=== PATIENT | female | born 1945 | race Asian ===

== ENCOUNTER 2016-11-06 20:07 | Emergency (ER) | payer OTHER ==
[~2016-11-06] VITALS: Ht 170.2 cm; Wt 57.5 kg
[~2016-11-06 20:07] MED LIST: ALLERGRA PO; ANTIVERT PO; BENADRYL PO; ESTRIDIOL PO; FLUOCINOLONE; SINGULAIR PO; TOF25; ZANTAC PO; ZYRTEC PO
[2016-11-06 20:18] VITALS: Ht 170.2 cm; Wt 57.5 kg
[2016-11-06] MEDS ORDERED: ONDANSETRON 4 MG INJ IV STA (20:30)
[2016-11-06] MEDS ORDERED: SOD CHLORIDE 0.9% 1,000 ML IV STA (20:30)
[2016-11-06] MEDS ORDERED: KETOROLAC 30 MG INJ IV STA (20:30)
[2016-11-06 20:54] LABS: BASOPHILS % 0.1 % (0.0-2.0); EOSINOPHILS # 0.1 10^3/ul (0.0-0.5); EOSINOPHILS % 0.9 % (0.0-7.0); HEMATOCRIT 40.7 % (37.0-47.0); HEMOGLOBIN 13.6 g/dl (12.0-16.0); LYMPHOCYTES # 1.1 10^3/ul (0.8-2.9); LYMPHOCYTES % 12.8 % (15.0-51.0); MEAN CORPUSCULAR HEMOGLOBIN 28.9 pg (29.0-33.0); MEAN CORPUSCULAR HGB CONC 33.4 g/dl (32.0-37.0); MEAN CORPUSCULAR VOLUME 86.6 fl (82.0-101.0); MEAN PLATELET VOLUME 10.2 fl (7.4-10.4); MONOCYTE # 0.4 10^3/ul (0.3-0.9); MONOCYTES % 4.5 % (0.0-11.0); NEUTROPHIL # 6.9 10^3/ul (1.6-7.5); NEUTROPHILS % 81.6 % (39.0-77.0); PLATELET COUNT 225 10^3/UL (140-415); RED CELL DISTRIBUTION WIDTH 12.6 % (11.5-14.5); WHITE BLOOD COUNT 8.5 10^3/ul (4.8-10.8)
[2016-11-06 20:55] LABS: ADD SCAN DIFF NO
--- NOTE | 2016-11-06 21:12 | RADRPT ---
PROCEDURE: Right upper quadrant abdominal ultrasound. CLINICAL INDICATION: Abdominal pain TECHNIQUE: Alford scale and color doppler ultrasound images of the right upper quadrant. COMPARISON: None FINDINGS: Pancreas: Visualized portions appear of normal echogenicity, no focal lesions. Liver: Morphology: Normal in size and contour. Echogenicity: Normal. Focal lesions: None. Main portal vein: Patent with hepatopetal flow. Biliary System: Normal appearing gallbladder wall. No gallstones seen. No intrahepatic biliary dilatation. Common bile duct measures 1.5 mm in maximal dimension. Kidneys: Right 9.0 cm in length. Right renal cortical thickness is preserved. Normal echogenicity. No hydronephrosis. No renal calculi. No focal lesions. No free fluid identified. IMPRESSION: Normal gallbladder without gallstones. RPTAT: AADD .Jori Esteban MD, Date Time Electronically viewed and signed by .Jori Esteban MD, on 11/06/2016 21:11 .B/
[2016-11-06 21:14] LABS: ALANINE AMINOTRANSFERASE 29 IU/L (13-69); ALBUMIN 4.9 g/dl (3.3-4.9); ALBUMIN/GLOBULIN RATIO 1.81; ALKALINE PHOSPHATASE 71 IU/L (42-121); ANION GAP 12 (8-16); ASPARTATE AMINO TRANSFERASE 26 IU/L (15-46); BILIRUBIN,INDIRECT 0.2 mg/dl (0-1.1); BILIRUBIN,TOTAL 0.2 mg/dl (0.2-1.3); BLOOD UREA NITROGEN 25 mg/dl (7-20); CALCIUM 9.7 mg/dl (8.4-10.2); CARBON DIOXIDE 28 mmol/L (21-31); CHLORIDE 100 mmol/L (97-110); GLUCOSE 131 mg/dl (70-220); SODIUM 136 mmol/L (135-144); TOTAL PROTEIN 7.6 g/dl (6.1-8.1)
[2016-11-06 21:29] LABS: TROPONIN-I < 0.012 ng/ml (0.00-0.12)
[2016-11-06 21:36] LABS: ADD UMIC YES; UR ASCORBIC ACID NEGATIVE (NEGATIVE); UR BILIRUBIN (Dip) NEGATIVE (NEGATIVE); UR BLOOD (Dip) NEGATIVE (NEGATIVE); UR CLARITY CLEAR (CLEAR); UR COLOR YELLOW (YELLOW); UR GLUCOSE (Dip) NEGATIVE (NEGATIVE); UR KETONES (Dip) NEGATIVE (NEGATIVE); UR LEUKOCYTE ESTERASE (Dip) 2+ Leu/ul (NEGATIVE); UR MUCUS FEW /HPF (NONE SEEN); UR NITRITE (Dip) NEGATIVE (NEGATIVE); UR RBC 1 /HPF (0-5); UR SPECIFIC GRAVITY (Dip) 1.016 (1.003-1.030); UR SQUAMOUS EPITHELIAL CELL FEW /HPF (FEW); UR TOTAL PROTEIN (Dip) NEGATIVE (NEGATIVE); UR UROBILINOGEN (Dip) NEGATIVE (NEGATIVE)
[2016-11-06] MEDS ORDERED: PANT40TA3 PO (21:57)
[2016-11-06] MEDS ORDERED: NITR-58 PO (21:57)
[2016-11-06] MEDS ORDERED: NITROFURANTOIN (SR) 100 MG CAP PO ONE (22:00)
--- NOTE | 2016-11-06 22:00 | ERD ---
ER Documentation Chief Complaint Date/Time DATE: 11/06/16 TIME: 21:59 Chief Complaint ABOMINAL CRAMPING/PAIN X1 DAY. DENIES N/V HPI Patient is a 8-year-old female with right shoulder pain and back pain who presents with abdominal pain. She has cramping. She says it started yesterday but was worse today. The pain is midepigastric and comes and goes. She says that it is better after she eats. She has no fevers and no vomiting. She denies bleeding. She said that she took Protonix and Bentyl today. She says " I think it might be stress. Upon review of old medical records this is the patient's second visit since 2012. ROS All systems reviewed and are negative except as per history of present illness. Medications Home Meds Active Scripts Pantoprazole* (Protonix*) 40 Mg Tablet.dr, 40 MG PO DAILY, #20 TAB Prov:CARRI GAMINO MD 11/06/16 Nitrofurantoin Monohyd Macrocr* (Macrobid*) 100 Mg Capsr, 100 MG PO BID for 14 Days, CAP Prov:CARRI GAMINO MD 11/06/16 Reported Medications [Singulair] No Conflict Check, 10 MG PO DAILY HS 08/12/12 [Benadryl] No Conflict Check, 25 MG PO BID Y 08/12/12 Imipramine Hcl (Tofranil) 25 Mg Tab, DAILY 08/12/12 [Estridiol] No Conflict Check, 2 MG PO DAILY 08/12/12 [Zyrtec] No Conflict Check, 10 MG PO DAILY Y 08/12/12 [Zantac] No Conflict Check, 150 MG PO BID Y per pt takes it with Katya and Zytrec as needed 08/12/12 [Allergra] No Conflict Check, 180 MG PO DAILY 08/12/12 [Fluocinolone] No Conflict Check Flucinolone 0.01% each nostril 1 spray in am 08/12/12 [Antivert] No Conflict Check, 25 MG PO BID 1/2 tab 08/12/12 Allergies Allergies: Coded Allergies: acetaminophen (Verified Allergy, Unknown, 11/06/16) alprazolam (Verified Allergy, Unknown, 11/06/16) amoxicillin (Verified Allergy, Unknown, STOMACH UPSET, 11/06/16) clarithromycin (Verified Allergy, Unknown, STOMACH ACHE, 11/06/16) dicyclomine (Verified Allergy, Unknown, 11/06/16) hydrocodone bit (Verified Allergy, Unknown, 11/06/16) imipramine (Verified Allergy, Unknown, 11/06/16) meperidine HCl (Verified Allergy, Unknown, 11/06/16) metronidazole (Verified Allergy, Unknown, STOMACH UPSET, 11/06/16) Uncoded Allergies: seafood (Allergy, Intermediate, 08/13/12) AMTRIPTYLINE (Allergy, Unknown, 11/06/16) PMhx/Soc History of Surgery: Yes (HYSTERECTOMY) Anesthesia Reaction: No Hx Neurological Disorder: No Hx Respiratory Disorders: No Hx Cardiac Disorders: No Hx Psychiatric Problems: Yes (ANXIETY, DEPRESSION) Hx Miscellaneous Medical Probl: Yes (GERD) Hx Alcohol Use: No Hx Substance Use: No Hx Tobacco Use: No Smoking Status: Never smoker FmHx Family History: diabetes Physical Exam Vitals Vital Signs Date Time Temp Pulse Resp B/P Pulse Ox O2 Delivery O2 Flow Rate FiO2 11/06/16 22:14 98.7 61 16 131/79 99 Room Air 11/06/16 20:18 98.9 108 18 105/60 95 Physical Exam Const: No acute distress Head: Atraumatic Eyes: Normal Conjunctiva ENT: Normal External Ears, Nose and Mouth. Neck: Full range of motion..~ No meningismus. Resp: Clear to auscultation bilaterally Cardio: Regular rate and rhythm, no murmurs Abd: Soft, minimal tenderness in the epigastric area without rebound or guarding Skin: No petechiae or rashes Back: No midline or flank tenderness Ext: No cyanosis, or edema Neur: Awake and alert Psych: Normal Mood and Affect Result Diagram: 11/06/16203811/06/162038 Results 24 hrs Laboratory Tests Test 11/06/16 20:39 11/06/16 20:52 White Blood Count 8.510^3/ul Red Blood Count 4.7010^6/ul Hemoglobin 13.6g/dl Hematocrit 40.7% Mean Corpuscular Volume 86.6fl Mean Corpuscular Hemoglobin 28.9pg Mean Corpuscular Hemoglobin Concent 33.4g/dl Red Cell Distribution Width 12.6% Platelet Count 10047^3/UL Mean Platelet Volume 10.2fl Neutrophils % 81.6% Lymphocytes % 12.8% Monocytes % 4.5% Eosinophils % 0.9% Basophils % 0.1% Nucleated Red Blood Cells % 0.0/100WBC Neutrophils # 6.910^3/ul Lymphocytes # 1.110^3/ul Monocytes # 0.410^3/ul Eosinophils # 0.110^3/ul Basophils # 0.010^3/ul Nucleated Red Blood Cells # 0.010^3/ul Sodium Level 136mmol/L Potassium Level 4.0mmol/L Chloride Level 100mmol/L Carbon Dioxide Level 28mmol/L Anion Gap 12 Blood Urea Nitrogen 25mg/dl Creatinine 0.90mg/dl Glucose Level 131mg/dl Calcium Level 9.7mg/dl Total Bilirubin 0.2mg/dl Direct Bilirubin 0.00mg/dl Indirect Bilirubin 0.2mg/dl Aspartate Amino Transf (AST/SGOT) 26IU/L Alanine Aminotransferase (ALT/SGPT) 29IU/L Alkaline Phosphatase 71IU/L Troponin I < 0.012ng/ml Total Protein 7.6g/dl Albumin 4.9g/dl Globulin 2.70g/dl Albumin/Globulin Ratio 1.81 Lipase 54U/L Urine Color YELLOW Urine Clarity CLEAR Urine pH 6.0 Urine Specific [place] 1.016 Urine Ketones NEGATIVEmg/dL Urine Nitrite NEGATIVEmg/dL Urine Bilirubin NEGATIVEmg/dL Urine Urobilinogen NEGATIVEmg/dL Urine Leukocyte Esterase 2+Lucy/ul Urine Microscopic RBC 1/HPF Urine Microscopic WBC 12/HPF Urine Squamous Epithelial Cells FEW/HPF Urine Mucus FEW/HPF Urine Hemoglobin NEGATIVEmg/dL Urine Glucose NEGATIVEmg/dL Urine Total Protein NEGATIVEmg/dl Current Medications Medications (Trade) Dose Ordered Sig/Sekou Route PRN Reason Start Time Stop Time Status Last Admin Dose Admin Sodium Chloride (NS) 1,000 ml @ 1,000 mls/hr Q1H STAT IV 11/06/16 20:30 11/06/16 21:29 DC 11/06/16 20:54 Ondansetron HCl (Zofran Inj) 4 mg ONCE STAT IV 11/06/16 20:30 11/06/16 20:32 DC 11/06/16 20:54 Ketorolac Tromethamine (Toradol) 30 mg ONCE STAT IV 11/06/16 20:30 11/06/16 20:32 DC 11/06/16 20:54 Nitrofurantoin Macrocrystals (Macrobid) 100 mg ONCE ONCE PO 11/06/16 22:00 11/06/16 22:01 DC 11/06/16 22:00 Procedures/MDM EKG read by me: Rate/Rhythm: Regular rate and rhythm at a rate of 98 Intervals: Normal Impression: No evidence of ischemia or arrhythmia Ultrasound of the gallbladder negative per radiology. Patient is a 71-year-old female presents with midepigastric abdominal pain. EKG was negative and laboratory studies were basically normal. Ultrasound shows no signs of gallstones. She was found to have acute cystitis. I believe she may also have gastritis versus ulcer. She is well-appearing here in the emergency department and I feel outpatient management is appropriate. The patient will need to follow-up closely with her primary doctor within 24 hours. She will be given Macrobid for her cystitis. She can take Protonix for reducing acid in the stomach. She can return for any worsening symptoms. I doubt acute coronary syndrome, pneumonia, pneumothorax, pulmonary embolism, or aortic dissection. I doubt cholecystitis, pancreatitis, appendicitis, or bowel obstruction. Departure Diagnosis: Primary Impression: Cystitis Additional Impression: Abdominal pain Condition: Fair Patient Instructions: Abdominal Pain, Cystitis Referrals: Your doctor Additional Instructions: Call your primary care doctor TOMORROW for an appointment during the next 1-2 days.See the doctor sooner or return here if your condition worsens before your appointment time. CARRI GAMINO MD Nov 06, 2016 22:00
[2016-11-06 22:14] VITALS: BP 131/79; PULSE 61; RESP 16; TEMP 98.7
== END 2016-11-06 22:20 | disposition home or self-care (01) ==
LOC: E/R 20:07
DX: N30.90 Cystitis, unspecified without hematuria (principal)
CPT/HCPCS: 36415; 76705; 80053; 81001; 83690; 84484; 85025; 96374; 96375; 99285; J1885; J2405; J7030; 93005

== ENCOUNTER 2017-03-25 00:08 | Emergency (ER) | payer OTHER ==
[~2017-03-25] VITALS: Ht 160 cm; Wt 58.0 kg
[~2017-03-25 00:08] MED LIST changes: +NITR-58 PO; +PANT40TA3 PO
[2017-03-25 00:10] VITALS: Ht 160 cm; Wt 58.0 kg
[2017-03-25 02:01] LABS: ADD UMIC YES; UR ASCORBIC ACID 40 mg/dL (NEGATIVE); UR BILIRUBIN (Dip) NEGATIVE (NEGATIVE); UR BLOOD (Dip) NEGATIVE (NEGATIVE); UR CLARITY CLOUDY (CLEAR); UR COLOR AMBER (YELLOW); UR GLUCOSE (Dip) NEGATIVE (NEGATIVE); UR KETONES (Dip) TRACE mg/dL (NEGATIVE); UR LEUKOCYTE ESTERASE (Dip) NEGATIVE Leu/ul (NEGATIVE); UR MUCUS MODERATE /HPF (NONE SEEN); UR NITRITE (Dip) NEGATIVE (NEGATIVE); UR RBC 18 /HPF (0-5); UR SPECIFIC GRAVITY (Dip) 1.034 (1.003-1.030); UR SQUAMOUS EPITHELIAL CELL FEW /HPF (FEW); UR TOTAL PROTEIN (Dip) 1+ mg/dl (NEGATIVE); UR UROBILINOGEN (Dip) NEGATIVE (NEGATIVE)
--- NOTE | 2017-03-25 02:17 | ERD ---
ER Documentation Chief Complaint Chief Complaint C/O PAINFUL URINATION X 3 DAY. NO FEVER. HPI This is a 71-year-old female who presents to the emergency department today stating "I think I have cystitis". States that she started having some pain with urination 3 hours ago. Denies any fevers or chills, abdominal pain, vomiting, back pain. ROS All systems reviewed and are negative except as per history of present illness. Medications Home Meds Active Scripts Cephalexin* (Keflex*) 500 Mg Capsule, 500 MG PO QID for 7 Days, CAP Prov:RAS BUSBY PA-C 03/25/17 Pantoprazole* (Protonix*) 40 Mg Tablet.dr, 40 MG PO DAILY, #20 TAB Prov:CARRI GAMINO MD 11/06/16 Nitrofurantoin Monohyd Macrocr* (Macrobid*) 100 Mg Capsr, 100 MG PO BID for 14 Days, CAP Prov:CARRI GAMINO MD 11/06/16 Reported Medications [Singulair] No Conflict Check, 10 MG PO DAILY HS 08/12/12 [Benadryl] No Conflict Check, 25 MG PO BID Y 08/12/12 Imipramine Hcl (Tofranil) 25 Mg Tab, DAILY 08/12/12 [Estridiol] No Conflict Check, 2 MG PO DAILY 08/12/12 [Zyrtec] No Conflict Check, 10 MG PO DAILY Y 08/12/12 [Zantac] No Conflict Check, 150 MG PO BID Y per pt takes it with Katya and Zytrec as needed 08/12/12 [Allergra] No Conflict Check, 180 MG PO DAILY 08/12/12 [Fluocinolone] No Conflict Check Flucinolone 0.01% each nostril 1 spray in am 08/12/12 [Antivert] No Conflict Check, 25 MG PO BID 1/2 tab 08/12/12 Allergies Allergies: Coded Allergies: acetaminophen (Verified Allergy, Unknown, 11/06/16) alprazolam (Verified Allergy, Unknown, 11/06/16) amoxicillin (Verified Allergy, Unknown, STOMACH UPSET, 11/06/16) clarithromycin (Verified Allergy, Unknown, STOMACH ACHE, 11/06/16) dicyclomine (Verified Allergy, Unknown, 11/06/16) hydrocodone bit (Verified Allergy, Unknown, 11/06/16) imipramine (Verified Allergy, Unknown, 11/06/16) meperidine HCl (Verified Allergy, Unknown, 11/06/16) metronidazole (Verified Allergy, Unknown, STOMACH UPSET, 11/06/16) Uncoded Allergies: seafood (Allergy, Intermediate, 08/13/12) AMTRIPTYLINE (Allergy, Unknown, 11/06/16) PMhx/Soc History of Surgery: Yes (HYSTERECTOMY) Anesthesia Reaction: No Hx Neurological Disorder: No Hx Respiratory Disorders: No Hx Cardiac Disorders: No Hx Psychiatric Problems: Yes (ANXIETY, DEPRESSION) Hx Miscellaneous Medical Probl: Yes (GERD) Hx Alcohol Use: No Hx Substance Use: No Hx Tobacco Use: No Smoking Status: Never smoker Physical Exam Vitals Vital Signs Date Time Temp Pulse Resp B/P Pulse Ox O2 Delivery O2 Flow Rate FiO2 03/25/17 00:10 97.6 97 18 113/76 96 Physical Exam Const: NAD Head: Atraumatic Eyes: Normal Conjunctiva ENT: Normal External Ears, Nose and Mouth. Neck: Full range of motion..~ No meningismus. Resp: Clear to auscultation bilaterally Cardio: Regular rate and rhythm, no murmurs Abd: Soft, suprapubic tenderness non distended. Normal bowel sounds. No tenderness at McBurney's Skin: No petechiae or rashes Back: No midline or flank tenderness. No CVA tenderness Ext: No cyanosis, or edema Neur: Awake and alert Psych: Normal Mood and Affect Results 24 hrs Laboratory Tests Test 03/25/17 01:03 Urine Color FRANCIA Urine Clarity CLOUDY Urine pH 5.0 Urine Specific [place] 1.034 Urine Ketones TRACEmg/dL Urine Nitrite NEGATIVEmg/dL Urine Bilirubin NEGATIVEmg/dL Urine Urobilinogen NEGATIVEmg/dL Urine Leukocyte Esterase NEGATIVELeu/ul Urine Microscopic RBC 18/HPF Urine Microscopic WBC 4/HPF Urine Squamous Epithelial Cells FEW/HPF Urine Calcium Oxalate Crystals MANY/HPF Urine Mucus MODERATE/HPF Urine Hemoglobin NEGATIVEmg/dL Urine Glucose NEGATIVEmg/dL Urine Total Protein 1+mg/dl Procedures/MDM This is a 71-year-old female who presents the emergency department today complaining of pain with urination for the past 3 hours. Upon review of patient 's medical records patient was seen here in November for abdominal pain and was noted to have a urinary tract infection at that time was given a prescription for Macrobid. Patient had suprapubic pain on physical exam. She has no tenderness in her right lower quadrant and no evident pelvic tenderness and I do not feel that she requires laboratory workup or imaging at this time. Low suspicion for acute surgical abdomen. Patient is afebrile and otherwise well- appearing however given her complaints I did obtain a UA UA shows negative leukocyte esterase negative nitrates. There are 18 microscopic red blood cells. There are many calcium oxalate crystals. Urine was sent for culture Patient has no back pain and no CVA tenderness and I have low suspicion for pyelonephritis. Patient does have calcium oxalate crystals and hematuria and I have explained to her that she may have kidney stones. Given that patient has symptomatic dysuria I treat the patient with Keflex and send the urine for culture. Symptoms at this time is consistent with dysuria and hematuria. I asked the patient twice if she wanted pain medication and she declined that here in the emergency room stating that she just wanted the antibiotic she did not want to take medication on "an empty stomach". At this time the patient is stable for discharge and outpatient management. Patient should follow up with their PCP in the next 1-2 days. They may return to the emergency department sooner for any persistent or worsening of symptoms. Patient understood and agreed with the plan. Discussed the patient with Dr. Rodriguez and he was in agreement with the plan. Departure Diagnosis: Primary Impression: Dysuria Condition: RAS Moctezuma PA-C Mar 25, 2017 02:17
[2017-03-25] MEDS ORDERED: CEPH-443 PO (02:24)
[2017-03-25 02:32] VITALS: BP 114/68; PULSE 96; RESP 17; TEMP 98
== END 2017-03-25 02:32 | disposition home or self-care (01) ==
LOC: FTE 00:08
DX: R30.0 Dysuria (principal)
CPT/HCPCS: 81001; 87086; 99283

== ENCOUNTER 2017-05-02 12:09 | Emergency (ER) | payer OTHER ==
[~2017-05-02] VITALS: Ht 154.9 cm; Wt 58.6 kg
[~2017-05-02 12:09] MED LIST changes: +CEPH-443 PO
[2017-05-02 12:11] VITALS: Ht 154.9 cm; Wt 58.6 kg
[2017-05-02] MEDS ORDERED: SOD CHLORIDE 0.9% 1,000 ML IV ONE (13:30)
[2017-05-02] MEDS ORDERED: FAMOTIDINE 20 MG TAB PO ONE (13:30)
[2017-05-02] MEDS ORDERED: METHYLPREDNISOLONE 125 MG INJ IV ONE (13:30)
[2017-05-02] MEDS ORDERED: DIPHENHYDRAMINE 50 MG INJ IV ONE (13:30)
[2017-05-02] MEDS ORDERED: EPINEPHrine 1 MG INJ SC ONE (14:00)
[2017-05-02] MEDS ORDERED: hydrOXYzine HCL 10 MG TAB PO ONE (14:00)
[2017-05-02] MEDS ORDERED: HYDR-842 PO (15:42)
[2017-05-02] MEDS ORDERED: NITROGLYCERIN 2% 1 GM OINT PKT TD STA (16:05)
[2017-05-02] MEDS ORDERED: ASPIRIN 325 MG TAB PO STA (16:05)
[2017-05-02 16:19] VITALS: BP 122/76; PULSE 112; RESP 19; TEMP 98.2
[2017-05-02] MEDS ORDERED: FLUO60SO7 TOP (16:30)
[2017-05-02] MEDS ORDERED: NITROGLYCERIN (SL) 0.4 MG TAB SL PRN (16:30)
[2017-05-02] MEDS ORDERED: FAMO20TA18 PO (16:30)
[2017-05-02] MEDS ORDERED: CETI5TAB20 PO (16:30)
[2017-05-02 16:43] LABS: BASOPHILS % 0.2 % (0.0-2.0); EOSINOPHILS % 0.3 % (0.0-7.0); HEMATOCRIT 37.7 % (37.0-47.0); HEMOGLOBIN 12.6 g/dl (12.0-16.0); LYMPHOCYTES # 1.1 10^3/ul (0.8-2.9); LYMPHOCYTES % 10.6 % (15.0-51.0); MEAN CORPUSCULAR HEMOGLOBIN 29.2 pg (29.0-33.0); MEAN CORPUSCULAR HGB CONC 33.4 g/dl (32.0-37.0); MEAN CORPUSCULAR VOLUME 87.5 fl (82.0-101.0); MEAN PLATELET VOLUME 10.4 fl (7.4-10.4); MONOCYTE # 0.1 10^3/ul (0.3-0.9); NEUTROPHIL # 9.4 10^3/ul (1.6-7.5); NEUTROPHILS % 87.6 % (39.0-77.0); PLATELET COUNT 239 10^3/UL (140-415); RED BLOOD COUNT 4.31 10^6/ul (4.20-5.40); RED CELL DISTRIBUTION WIDTH 12.7 % (11.5-14.5); WHITE BLOOD COUNT 10.7 10^3/ul (4.8-10.8)
[2017-05-02 16:57] LABS: INR 0.88; PARTIAL THROMBOPLASTIN TIME 30.9 Sec (25.0-35.0); PT RATIO 0.9
--- NOTE | 2017-05-02 16:57 | RADRPT ---
PROCEDURE: XR, Chest. CLINICAL INDICATION: Chest pain. TECHNIQUE: AP chest COMPARISON: Chest, 08/12/2012. FINDINGS: The heart is not enlarged. There is calcified atherosclerosis of the aortic arch. The lungs are ov erinflated. There is no acute infiltrate in the lungs. No pleural effusion. IMPRESSION: 1. Overinflated lungs. 2. Calcified atherosclerosis of the aortic arch. RPTAT: GG .Gurjit Mcgee MD, MD Date Time Electronically viewed and signed by .Gurjit Mcgee MD, MD on 05/02/2017 16:57 .Y/
[2017-05-02 17:00] LABS: ALANINE AMINOTRANSFERASE 33 IU/L (13-69); ALBUMIN 4.1 g/dl (3.3-4.9); ALBUMIN/GLOBULIN RATIO 1.41; ALKALINE PHOSPHATASE 73 IU/L (42-121); ANION GAP 14 (8-16); ASPARTATE AMINO TRANSFERASE 28 IU/L (15-46); BILIRUBIN,INDIRECT 0.3 mg/dl (0-1.1); BILIRUBIN,TOTAL 0.3 mg/dl (0.2-1.3); BLOOD UREA NITROGEN 18 mg/dl (7-20); CALCIUM 9.4 mg/dl (8.4-10.2); CARBON DIOXIDE 26 mmol/L (21-31); CHLORIDE 105 mmol/L (97-110); CREATININE 0.82 mg/dl (0.44-1.00); GLUCOSE 153 mg/dl (70-220); POTASSIUM 3.6 mmol/L (3.5-5.1); SODIUM 141 mmol/L (135-144)
[2017-05-02 17:12] LABS: TROPONIN-I < 0.012 ng/ml (0.00-0.12)
[2017-05-02] MEDS ORDERED: NITR0.4T32 SL (18:19)
[2017-05-02] MEDS ORDERED: PRED20TA PO (18:20)
[2017-05-02] MEDS ORDERED: UDATA PO (18:21)
--- NOTE | 2017-05-02 18:27 | ERD ---
ER Documentation Chief Complaint Chief Complaint generalized rash with itching x 1 month HPI This is a 71-year-old female who is had 1 month of itchy rash of hives. The patient is seen here before for the same thing. She is on Benadryl and prednisone currently she has off-and-on changing locations hives. No respiratory symptoms no facial swelling or difficulty swallowing lip swelling or throat swelling. ROS All systems reviewed and are negative except as per history of present illness. Medications Home Meds Active Scripts Hydroxyzine Hcl* (Atarax*) 2 Mg/Ml Syrup, 25 MG PO Q6H Y for ITCHING, #30 ML Prov:ALIZE CROUCH. DO 05/02/17 Prednisone* (Prednisone*) 20 Mg Tab, 60 MG PO DAILY for 5 Days, TAB Prov:ALIZE CROUCH DO 05/02/17 Nitroglycerin* (Nitroglycerin* SL) 0.4 Mg Tab.subl, 0.4 MG SL Q5MIN Y for CHEST PAIN, #1 BOTTLE Prov:ALIZE CROUCH DO 05/02/17 Hydroxyzine Hcl* (Atarax*) 25 Mg Tab, 25 MG PO Q6H Y for ITCHING for 3 Days, TAB Prov:KONRAD ROMAN 05/02/17 Reported Medications Fluocinonide* (Fluocinonide* Soln) 0.05% - 60 Ml Solution, 1 APPLIC TOP DAILY, EA 05/02/17 Cetirizine Hcl* (Cetirizine Hcl*) 5 Mg Tablet, 5 MG PO DAILY, #30 TAB 05/02/17 Famotidine* (Famotidine*) 20 Mg Tablet, 20 MG PO DAILY, #30 TAB 05/02/17 Discontinued Reported Medications [Singulair] No Conflict Check, 10 MG PO DAILY HS 08/12/12 [Benadryl] No Conflict Check, 25 MG PO BID Y 08/12/12 Imipramine Hcl (Tofranil) 25 Mg Tab, DAILY 08/12/12 [Estridiol] No Conflict Check, 2 MG PO DAILY 08/12/12 [Zyrtec] No Conflict Check, 10 MG PO DAILY Y 08/12/12 [Zantac] No Conflict Check, 150 MG PO BID Y per pt takes it with Katya and Zytrec as needed 08/12/12 [Allergra] No Conflict Check, 180 MG PO DAILY 08/12/12 [Fluocinolone] No Conflict Check Flucinolone 0.01% each nostril 1 spray in am 08/12/12 [Antivert] No Conflict Check, 25 MG PO BID 1/2 tab 08/12/12 Discontinued Scripts Cephalexin* (Keflex*) 500 Mg Capsule, 500 MG PO QID for 7 Days, CAP Prov:RAS BUSBY PA-C 03/25/17 Pantoprazole* (Protonix*) 40 Mg Tablet.dr, 40 MG PO DAILY, #20 TAB Prov:CARRI GAMINO MD 11/06/16 Nitrofurantoin Monohyd Macrocr* (Macrobid*) 100 Mg Capsr, 100 MG PO BID for 14 Days, CAP Prov:CARRI GAMINO MD 11/06/16 Allergies Allergies: Coded Allergies: acetaminophen (Verified Allergy, Unknown, 05/02/17) alprazolam (Verified Allergy, Unknown, 05/02/17) amoxicillin (Verified Allergy, Unknown, STOMACH UPSET, 05/02/17) clarithromycin (Verified Allergy, Unknown, STOMACH ACHE, 05/02/17) dicyclomine (Verified Allergy, Unknown, 05/02/17) hydrocodone bit (Verified Allergy, Unknown, 05/02/17) imipramine (Verified Allergy, Unknown, 05/02/17) meperidine HCl (Verified Allergy, Unknown, 05/02/17) metronidazole (Verified Allergy, Unknown, STOMACH UPSET, 05/02/17) Uncoded Allergies: seafood (Allergy, Intermediate, 08/13/12) AMTRIPTYLINE (Allergy, Unknown, 11/06/16) PMhx/Soc History of Surgery: Yes (HYSTERECTOMY) Anesthesia Reaction: No Hx Neurological Disorder: No Hx Respiratory Disorders: No Hx Cardiac Disorders: No Hx Psychiatric Problems: Yes (ANXIETY, DEPRESSION) Hx Miscellaneous Medical Probl: Yes (GERD) Hx Alcohol Use: No Hx Substance Use: No Hx Tobacco Use: No Smoking Status: Never smoker FmHx Family History: No coronary disease Physical Exam Vitals Vital Signs Date Time Temp Pulse Resp B/P Pulse Ox O2 Delivery O2 Flow Rate FiO2 05/02/17 16:19 98.2 112 19 122/76 97 Room Air 05/02/17 12:11 98.2 112 18 123/77 97 Physical Exam Const: Well-developed, well-nourished Head: Atraumatic, normocephalic Eyes: Normal Conjunctiva, PERRLA, EOMI, normal sclera, no nystagmus ENT: Normal External Ears, Nose and Mouth, moist mucus membranes. Neck: Full range of motion. No meningismus, no lymphadenopathy. Resp: Clear to auscultation bilaterally, no wheezing, rhonchi, rales Cardio: Regular rate and rhythm, no murmurs, S1 S2 present Abd: Soft, non tender x 4, non distended. Normal bowel sounds, no guarding or rebound, no pulsitile abdominal masses or bruits Skin: [Diffuse hives Back: No midline or flank tenderness Ext: No cyanosis, or edema, FROM x 4, normal inspection, neurovascularly intact x 4 Neur: Awake and alert, STR 5/5 x 4, sensation intact x 4, no focal findings, cerebellum intact Psych: Normal Mood and Affect Result Diagram: 05/02/17 1635 05/02/17 1635 Results 24 hrs Laboratory Tests Test 05/02/17 16:35 White Blood Count 10.710^3/ul Red Blood Count 4.3110^6/ul Hemoglobin 12.6g/dl Hematocrit 37.7% Mean Corpuscular Volume 87.5fl Mean Corpuscular Hemoglobin 29.2pg Mean Corpuscular Hemoglobin Concent 33.4g/dl Red Cell Distribution Width 12.7% Platelet Count 52537^3/UL Mean Platelet Volume 10.4fl Neutrophils % 87.6% Lymphocytes % 10.6% Monocytes % 1.0% Eosinophils % 0.3% Basophils % 0.2% Nucleated Red Blood Cells % 0.0/100WBC Neutrophils # 9.410^3/ul Lymphocytes # 1.110^3/ul Monocytes # 0.110^3/ul Eosinophils # 0.010^3/ul Basophils # 0.010^3/ul Nucleated Red Blood Cells # 0.010^3/ul Prothrombin Time 12.0Sec Prothrombin Time Ratio 0.9 INR International Normalized Ratio 0.88 Activated Partial Thromboplast Time 30.9Sec Sodium Level 141mmol/L Potassium Level 3.6mmol/L Chloride Level 105mmol/L Carbon Dioxide Level 26mmol/L Anion Gap 14 Blood Urea Nitrogen 18mg/dl Creatinine 0.82mg/dl Glucose Level 153mg/dl Calcium Level 9.4mg/dl Total Bilirubin 0.3mg/dl Direct Bilirubin 0.00mg/dl Indirect Bilirubin 0.3mg/dl Aspartate Amino Transf (AST/SGOT) 28IU/L Alanine Aminotransferase (ALT/SGPT) 33IU/L Alkaline Phosphatase 73IU/L Troponin I < 0.012ng/ml Total Protein 7.0g/dl Albumin 4.1g/dl Globulin 2.90g/dl Albumin/Globulin Ratio 1.41 Current Medications Medications (Trade) Dose Ordered Sig/Sekou Route PRN Reason Start Time Stop Time Status Last Admin Dose Admin Methylprednisolone Sodium Succinate (Solu-Medrol) 80 mg ONCE ONCE IV 05/02/17 13:30 05/02/17 13:31 DC 05/02/17 13:18 Diphenhydramine HCl (Benadryl) 25 mg ONCE ONCE IV 05/02/17 13:30 05/02/17 13:31 DC 05/02/17 13:18 Famotidine 20 mg 20 mg ONCE ONCE PO 05/02/17 13:30 05/02/17 13:31 DC 05/02/17 13:18 Sodium Chloride (NS) 1,000 ml @ 1,000 mls/hr Q1H ONCE IV 05/02/17 13:30 05/02/17 14:29 DC 05/02/17 13:18 Epinephrine (EPINEPHrine) 0.25 mg ONCE ONCE SC 05/02/17 14:00 05/02/17 14:01 DC 05/02/17 14:08 Hydroxyzine HCl (Atarax) 10 mg ONCE ONCE PO 05/02/17 14:00 05/02/17 14:01 DC 05/02/17 14:31 Aspirin (Aspirin) 325 mg ONCE STAT PO 05/02/17 16:05 05/02/17 16:07 DC Nitroglycerin (Nitroglycerin 2% Oint) 1 inch ONCE STAT TD 05/02/17 16:05 05/02/17 16:07 DC Nitroglycerin (Nitroglycerin (Sl Tab) 0.4 Mg) 1 tab Q5M UP TO 3 DOSES PRN SL CHEST PAIN 05/02/17 16:30 05/02/17 16:12 Procedures/MDM Patient received treatment here for allergic reaction but did not respond much. She was in giving some Atarax and 0.2 mg epi subcu. After the epi was given the patient started getting some tachycardia palpitations and chest pressure. She was then given nitroglycerin sublingual. After that her pain is gone. EKG: Rate/Rhythm: Sinus tachycardia heart rate 111 QRS, ST, QT: NORMAL [place], QRS, QT] Impression: Sinus tachycardia PROCEDURE: XR, Chest. CLINICAL INDICATION: Chest pain. TECHNIQUE: AP chest COMPARISON: Chest, 08/12/2012. FINDINGS: The heart is not enlarged. There is calcified atherosclerosis of the aortic arch. The lungs are overinflated. There is no acute infiltrate in the lungs. No pleural effusion. IMPRESSION: 1. Overinflated lungs. 2. Calcified atherosclerosis of the aortic arch. RPTAT: GG .Gurjit Mcgee MD, Date Time Electronically viewed and signed by .Gurjit Mcgee MD, on 05/02/2017 16:57 .Y/ CC: ALIZE CROUCH DO Discussed with patient the need to admit to the hospital because she received epinephrine and the cause chest pressure that she could have a narrow vessel artery and the heart causing angina. The patient does not want to stay in the hospital because she has family at home waiting for [place] dinner. I discussed with her the risk of leaving including cardiac arrest and and she says she understands this problem she says "I will leave even if I have to , I have too many people waiting at home for me." Patient states she understands cardiac problems because her takes sublingual nitroglycerin. She says if she gets worse she will return. I told her if she leaves AGAINST MEDICAL ADVICE that she must see a illusionist as soon as possible. Told her to see her 's doctor who is a illusionist Departure Diagnosis: Primary Impression: Chest pain Chest pain type: unspecified Qualified Code: R07.9 - Chest pain, unspecified type Additional Impression: Rash Condition: Stable Patient Instructions: Self-Care for Skin Rashes, Chest Pain, Uncertain Cause Additional Instructions: Call your primary care doctor TOMORROW for an appointment during the next 1-2 days.See the doctor sooner or return here if your condition worsens before your appointment time. ALIZE CROUCH DO May 02, 2017 18:27
== END 2017-05-02 18:20 | disposition left against medical advice (07) ==
LOC: FTE 12:09 → E/R 18:20
DX: R07.9 Chest pain, unspecified (principal)
CPT/HCPCS: 36415; 71010; 80053; 84484; 85025; 85610; 85730; 93005; 96372; 96374; 96375; 99285; J0171; J1200; J2930; J7030

== ENCOUNTER 2017-08-08 16:32 | Emergency (ER) | END 2017-08-08 22:16 | disposition home or self-care (01) ==